=== PATIENT | female | born 1965 | race Caucasian/White ===

== ENCOUNTER 2021-12-29 05:53 | Observation (INO) ==
[2021-12-29] MEDS ORDERED: CeFAZolin Syr 3,000MG/30 ML 3,000 MG/30 ML SYRINGE IVPB ONE (06:57)
[2021-12-29] MEDS ORDERED: Celecoxib 200 MG CAPSULE PO ONE (07:00)
[2021-12-29] MEDS ORDERED: Ringers Solution, Lactated 1,000 ML IVC SCH (07:00)
[2021-12-29] MEDS ORDERED: Famotidine 20 MG TABLET PO ONE (07:00)
[2021-12-29] MEDS ORDERED: Ondansetron 4 MG/2 ML VIAL ONE (07:35)
[2021-12-29] MEDS ORDERED: *HR* Succinylcholine 200 MG/10 ML VIAL IVP ONE (07:35)
[2021-12-29] MEDS ORDERED: Lidocaine HCL 4 ML Topical Solution (Laryng-O-Jet Kit Sterile Pak) TP ONE (07:35)
[2021-12-29] MEDS ORDERED: *HR* Rocuronium Bromide 50 MG/5 ML VIAL ONE (07:35)
[2021-12-29] MEDS ORDERED: Lidocaine -MPF 2% 2 ML VIAL ONE (07:35)
[2021-12-29] MEDS ORDERED: *HR* FentaNYL (PF) 100 MCG/2 ML VIAL ONE (07:39)
[2021-12-29] MEDS ORDERED: *HR* Midazolam HCl 2 MG/2 ML VIAL ONE (07:39)
[2021-12-29] MEDS ORDERED: *HR* Propofol 200 MG/20 ML VIAL IVP ONE (07:39)
[2021-12-29] MEDS ORDERED: Bupivacaine/EPI 1:200k 0.25% 50 ML VIAL ONE (07:42)
[2021-12-29] MEDS ORDERED: hydrOXYzine pamoate 25 MG CAPSULE PO PRN ×2 (08:12→10:58)
[2021-12-29] MEDS ORDERED: Nitroglycerin 0.4 MG TAB.SUBL SL PRN ×2 (08:13→10:58)
[2021-12-29] MEDS ORDERED: *HR* OxyCODONE Immed Rel 5 MG TABLET PO PRN ×2 (08:16→09:20)
[2021-12-29] MEDS ORDERED: Ondansetron 4 MG/2 ML VIAL IVP PRN ×3 (08:19→10:58)
[2021-12-29] MEDS ORDERED: OXcarbazepine 150 MG TABLET PO SCH (09:00)
[2021-12-29] MEDS ORDERED: BuPROPion XL (24 HR) 150 MG TABLET PO SCH (09:00)
[2021-12-29] MEDS ORDERED: amLODIPine 5 MG TABLET PO SCH (09:00)
[2021-12-29] MEDS: *HR* HYDROmorphone PF 0.5 MG/0.5 ML SYRINGE IVP PRN ×2 (09:55→10:07)
[2021-12-29] MEDS: *HR* OxyCODONE Immed Rel 5 MG TABLET PO PRN ×2 (14:34→20:01)
[2021-12-29] MEDS ORDERED: ceFAZolin 2,000 MG in 0.9 % Sodium Chloride 100 ML IVPB SCH (16:00)
[2021-12-29] MEDS: Ringers Solution, Lactated 1,000 ML IVC SCH (16:03)
[2021-12-29] MEDS: CeFAZolin 2,000 MG/120 ML BAG IVPB SCH ×2 (16:03→23:35)
[2021-12-29] MEDS: OXcarbazepine 150 MG TABLET PO SCH (20:01)
[2021-12-30] MEDS: *HR* OxyCODONE Immed Rel 5 MG TABLET PO PRN ×4 (00:14→19:06)
[2021-12-30] MEDS: *HR* Enoxaparin 40 MG/0.4 ML SYRINGE SQ SCH (05:21)
[2021-12-30] MEDS ORDERED: *HR* Enoxaparin 40 MG/0.4 ML SYRINGE SQ SCH (06:00)
[2021-12-30] MEDS: BuPROPion XL (24 HR) 150 MG TABLET PO SCH (08:43)
[2021-12-30] MEDS: amLODIPine 5 MG TABLET PO SCH (08:44)
[2021-12-30] MEDS: OXcarbazepine 150 MG TABLET PO SCH ×2 (08:44→20:31)
[2021-12-30] MEDS: CeFAZolin 2,000 MG/120 ML BAG IVPB SCH ×3 (10:33→23:17)
[2021-12-30] MEDS ORDERED: *HR* HYDROmorphone (PF) 1 MG/ML SYRINGE IVP ONE (11:29)
[2021-12-30] MEDS: Nicotine 21 MG PATCH.TD24 TD SCH (12:07)
[2021-12-30] MEDS: Ringers Solution, Lactated 1,000 ML IVC SCH (20:31)
[2021-12-30] MEDS: Ketorolac 30 MG/ML VIAL IVP SCH (23:18)
[2021-12-31] MEDS: Ketorolac 30 MG/ML VIAL IVP SCH ×3 (05:52→17:51)
[2021-12-31] MEDS: *HR* Enoxaparin 40 MG/0.4 ML SYRINGE SQ SCH (05:52)
[2021-12-31] MEDS: CeFAZolin 2,000 MG/120 ML BAG IVPB SCH ×2 (07:56→16:58)
[2021-12-31] MEDS: amLODIPine 5 MG TABLET PO SCH (08:00)
[2021-12-31] MEDS: OXcarbazepine 150 MG TABLET PO SCH ×2 (08:00→20:24)
[2021-12-31] MEDS: BuPROPion XL (24 HR) 150 MG TABLET PO SCH (08:00)
[2021-12-31] MEDS: Nicotine 21 MG PATCH.TD24 TD SCH (08:01)
[2021-12-31 16:24] LABS: Influenza A PCR Negative (Negative); Influenza B PCR Negative (Negative); Resp. Syncytial Virus PCR Negative (Negative)
[2021-12-31 16:25] LABS: SARS-CoV-2 by PCR (In House) Negative (Negative)
[2021-12-31 19:05] VITALS: BP 125/72; PULSE 64; TEMP 97.8; O2SAT 98
[2021-12-31] MEDS: *HR* OxyCODONE Immed Rel 5 MG TABLET PO PRN (22:58)
== END 2021-12-31 22:45 ==
LOC: 4WAOSI 05:53 → SDCAOSI 05:53 → 4WAOSI 10:40
PROVIDERS: ADMIT Podiatrist; ATTEND Podiatrist